=== PATIENT | male | born 1995 | race Caucasian/White ===

== ENCOUNTER 2022-03-26 18:53 | Emergency (ER) | payer OTHER ==
[~2022-03-26] VITALS: Ht 185.4 cm; Wt 108.9 kg
[2022-03-26 19:12] VITALS: BP_SYST 133
--- NOTE | 2022-03-26 19:16 | NUR ---
PATIENT STATES THAT AT APROX 1800 TODAY, WAS PLAYING WITH DAUGHTER AT HOME AND FELT LIKE HE STOOD UP FAST AND THEN FELT A PAIN IN UPPER LEFT BACK THAT RADIATED TO CHEST WITH DULL LIKE PAIN. PATIENT STATES HE FELT LIGHT-HEADED AND IS STILL FEELING THIS WAY WELL.
[2022-03-26 20:01] LABS: BASOPHILS # (AUTO) 0.1 K/uL (0.0-0.2); BASOPHILS % (AUTO) 1.2 % (0.0-2.0); EOSINOPHILS # (AUTO) 0.2 K/uL (0.0-0.4); EOSINOPHILS % (AUTO) 2.5 % (0.0-4.0); HEMATOCRIT 44.1 % (36-54); HEMOGLOBIN 15.7 g/dL (14.0-18.0); LYMPHOCYTES # (AUTO) 1.8 K/uL (1.0-5.5); MEAN CORPUSCULAR HEMOGLOBIN 30 pg (27-31); MEAN CORPUSCULAR HGB CONC 36 % (32-36); MEAN CORPUSCULAR VOLUME 83 fL (79.0-98.0); MONOCYTES # (AUTO) 0.5 K/uL (0.0-1.0); NEUTROPHILS % (AUTO) 61.3 % (40.0-70.0); PLATELET COUNT (AUTO) 171 K/uL (130-430); RED BLOOD CELL COUNT(AUTO) 5.32 MIL/uL (4.2-6.2); RED CELL DISTRIBUTION WIDTH 12.9 % (9.0-15.0); WHITE BLOOD COUNT (AUTO) 6.6 K/uL (4.8-10.8)
[2022-03-26 20:12] LABS: ANION GAP 5 (5-15); CALCIUM 9.7 mg/dL (8.4-11.0); CHLORIDE 104 mmol/L (98-107); CREATININE 1.24 mg/dL (0.55-1.30); GFR AFRICAN AMERICAN 90 mL/min (>90); GLUCOSE 92 mg/dL (70-99); POTASSIUM 4.3 mmol/L (3.5-5.1); UREA NITROGEN, BLOOD 15 mg/dL (8-21)
[2022-03-26 20:20] LABS: ALANINE AMINOTRANSFERASE 26 U/L (12-78); ALBUMIN 4.5 g/dL (3.4-4.8); ASPARTATE AMINOTRANSFERASE 16 U/L (10-37); TOTAL BILIRUBIN 0.4 mg/dL (0.0-1.0)
[2022-03-26] MEDS ORDERED: LIDO1ADH71 TD (20:32)
[2022-03-26] MEDS ORDERED: IBUP-1969 PO (20:32)
[2022-03-26] MEDS ORDERED: METH-634 PO (20:33)
--- NOTE | 2022-03-26 21:00 | NUR ---
DR. CHAVIRA ASSESSING PATIENT IN TRIAGE.
--- NOTE | 2022-03-26 21:14 | NUR ---
Patient given written and verbal discharge instructions and verbalizes understanding. ER MD discussed with patient the results and treatment provided. Patient in stable condition. ID arm band removed. IV catheter removed intact and dressing applied, no active bleeding. Rx of MEDS given. Patient educated on pain management and to follow up with PMD. Pain Scale . Opportunity for questions provided and answered. Medication side effect fact sheet provided.
== END 2022-03-26 21:13 | disposition home or self-care (01) ==
LOC: SED 18:53
DX: R07.89 Other chest pain (principal); M25.512 Pain in left shoulder; Z79.899 Other long term (current) drug therapy
CPT/HCPCS: 36415; 71045; 80053; 84484; 85025; 85379; 93005; 99285